=== PATIENT | male | born 2000 | race Caucasian/White ===

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

== ENCOUNTER 2020-01-18 18:28 | Emergency (ER) | payer OTHER, SELFPAY ==
--- NOTE | ~2020-01-18 | XR_ITS ---
EXAMINATION: XR knee LT min 4V DATE: 01/18/2020 19:11 INDICATION: Left knee pain TECHNIQUE: Four views of the left knee were obtained. COMPARISON: None. FINDINGS: Alignment is normal. No fracture or osteochondral lesion. Joint spaces are normal with no e rosions. There is a moderate size knee joint effusion. Soft tissues are unremarkable. IMPRESSION: 1. Moderate size knee joint effusion. Reviewed, dictated and finalized at location A.
[2020-01-18 18:36] VITALS: BP 144/77; PULSE 90; RESP 19; TEMP 36.1; O2SAT 98
--- NOTE | 2020-01-18 19:31 | ED.LOWEXIN ---
HPI - Extremity Injury (Lower) General Chief Complaint: Extremity Injury, Lower Stated Complaint: Left Knee Pain Time Seen by Provider: 01/18/20 18:58 Source: patient Mode of arrival: wheelchair Limitations: no limitations History of Present Illness HPI Narrative: This is a 19-year-old male that presents the emergency department for left knee pain after an injury today. Reports he was walking down the steps and felt a pop in his left knee. Reports since he has had pain in the knee. Especially with weightbearing. Pain is relieved with rest. Denies decreased range of motion or numbness. Related Data Home Medications Medication Instructions Recorded Confirmed No Home Medications 01/18/20 01/18/20 Allergies Allergy/AdvReac Type Severity Reaction Status Date / Time amoxicillin Allergy Unknown Hives Verified 01/18/20 18:39 AMOXICILLIN TRIHYDRATE Allergy Unknown Hives Uncoded 01/18/20 18:39 POTASSIUM CLAVULANATE Allergy Unknown Hives Uncoded 01/18/20 18:39 Review of Systems Review of Systems: Narrative: CONSTITUTIONAL: Denies fever MUSCULOSKELETAL: Reports joint pain, and myalgia. NEUROLOGIC: Denies numbness, or weakness. All systems reviewed & are unremarkable except as noted in HPI and below PMFSH Past Medical History Medical History (Updated 01/18/20 @ 20:59 by Ernestine Last PA-C) ADHD Closed left humeral fracture Surgical History Surgical History (Updated 01/18/20 @ 19:32 by Ernestine Last PA-C) History of myringotomy Social History Social History (Updated 11/09/19 @ 16:17 by Elidia King NP) Smoking status: Never smoker Alcohol intake: never Gender identity (if verbalized by the patient): Female Exam Narrative: Exam Narrative: GENERAL: Well-appearing, obese, and in no acute distress. HEAD: Normocephalic, atraumatic. EYES: EOMI. EXTREMITIES: Normal range of motion. No edema or obvious deformity. Normal DP pulses SKIN: Warm, dry, no rash. NEURO: No focal deficits. Alert and oriented x3. PSYCH: Normal mood and affect Course Vital Signs Vital signs: Vital Signs Temperature 96.9 F L 01/18/20 18:36 Pulse Rate 90 01/18/20 18:36 Respiratory Rate 19 01/18/20 18:36 Blood Pressure 144/77 H 01/18/20 18:36 Pulse Oximetry 98 01/18/20 18:36 Temperature 96.9 F L 01/18/20 18:36 Pulse Rate 90 01/18/20 18:36 Respiratory Rate 19 01/18/20 18:36 Blood Pressure 144/77 H 01/18/20 18:36 Pulse Oximetry 98 01/18/20 18:36 Procedures Orthopedic Splinting/Casting Injury #1: Splinting/Casting Date: 01/18/20 Splinting/Casting Time: 20:59 Side: left Lower Extremity Injury Location: knee Lower Extremity Immobilizer: knee immobilizer Splint: prefabricated Pre-Formed: knee immobilizer Pre-Procedure Neuro Vascular Exam: normal Post-Procedure Neuro Vascular Exam: normal MDM - Extremity Injury (Lower) MDM Narrative Medical decision making narrative: Patient presents to the emergency department for left knee pain after an injury today. Reports feeling a pop and having pain with weightbearing. Left knee x-ray is without acute osseous findings. Does show a moderate sized knee joint effusion. Patient placed in knee immobilizer and given crutches. He will be given orthopedics for follow-up. He was given warnings to return to the ER Imaging Data Radiologist's impression: ITS Impressions Knee X-Ray 01/18/20 19:36 IMPRESSION: 1. Moderate size knee joint effusion. Critical Care Time Critical Care Time Critical Care Time: No Discharge Plan Discharge Clinical Impression: Left knee sprain Qualifiers: Encounter type: initial encounter Involved ligament of knee: unspecified ligament Qualified Code(s): S83.92XA - Sprain of unspecified site of left knee, initial encounter Patient Disposition: Home, Self-Care Condition: Stable Instructions: Knee Sprain (ED) Additional Instructions
== END 2020-01-18 21:09 | disposition home or self-care (01) ==
PROVIDERS: Emergency Provider Family Medicine; PCP Family Medicine
DX: S83.92XA Sprain of unspecified site of left knee, initial encounter (principal); X50.9XXA Other and unspecified overexertion or strenuous movements or postures, initial encounter
CPT/HCPCS: 73564; 99283

== ENCOUNTER 2020-02-14 10:54 | Outpatient (CLI) | payer OTHER, SELFPAY ==
--- NOTE | ~2020-02-14 | MR_ITS ---
EXAMINATION: MR knee LT wo con DATE: 02/14/2020 11:39 INDICATION: Left knee injury TECHNIQUE: Magnetic resonance imaging (MRI) of the left knee was performed without intravenous contra st. Sequences included coronal PD-weighted FSE, coronal PD-weighted FS FSE, sagittal T2-weighted FSE , sagittal PD-weighted FS FSE and axial PD weighted fat saturated FSE. COMPARISON: Left knee radiographs dated 01/18/2020 FINDINGS: Medial compartment: Medial meniscus is normal. Articular cartilage is normal. Lateral compartment: Lateral meniscus is normal. Articular cartilage is normal. Patellofemoral compartment: Articular cartilage is normal. Ligaments and tendons: Anterior and posterior cruciate ligaments are normal. The medial collateral ligament and fibular ashish ateral ligament complex are normal. The patellar and quadriceps tendons are normal. There is partial tear along the patellar insertion of the medial patellofemoral retinaculum. The visualized medial and lateral hamstring tendons as well as the iliotibial band are normal. Fluid: Small left knee joint effusion. No loose osteochondral bodies identified. Osseous/other: Bone alignment is normal. Marrow edema along the inferomedial aspect of the patella and along the lat eral nonarticular margin of the lateral femoral condyle with pattern consistent with bone contusions in the setting of a patellar dislocation/relocation impaction injury. No fracture or pathologic marro w replacing process. IMPRESSION: 1. Patellar dislocation/relocation injury with patellar and lateral femoral condylar bone contusions and partial tear of the medial patellofemoral retinaculum. Reviewed, dictated and finalized at location B. IMPRESSION: 1. Patellar dislocation/relocation injury with patellar and lateral femoral con dylar bone contusions and partial tear of the medial patellofemoral retinaculum .
== END 2020-02-14 10:55 | disposition home or self-care (01) ==
LOC: ANHIMG 10:55
PROVIDERS: PCP Family Medicine; Visit Provider Orthopaedic Surgery
DX: S89.92XA Unspecified injury of left lower leg, initial encounter (principal); S76.192A Other specified injury of left quadriceps muscle, fascia and tendon, initial encounter
CPT/HCPCS: 73721